=== PATIENT | male | born 1995 | race Caucasian/White ===

== ENCOUNTER 2018-10-15 10:08 | Emergency (ER) | payer SELFPAY ==
[~2018-10-15] VITALS: Ht 165.1 cm; Wt 105.7 kg
[2018-10-15] MEDS ORDERED: IBUP-1114 PO (10:11)
[2018-10-15] MEDS ORDERED: NS 1,000 ML IV ONE (10:45)
[2018-10-15] MEDS ORDERED: ONDANSETRON 4MG/2ML VIAL (J2405) IV ONE (10:45)
[2018-10-15] MEDS ORDERED: KETOROLAC 30 MG/ML VIAL (J1885) IV ONE (10:45)
[2018-10-15 11:22] LABS: BASO % 0.3 % (0.0-1.0); EOS % 0.3 % (0.0-3.0); HEMATOCRIT 45.2 % (42.0-52.0); HEMOGLOBIN 14.8 g/dl (13.5-17.5); LYMPH % 9.5 % (24.0-44.0); MEAN CORPUSCULAR HEMOGLOBIN 27.7 pg (27.0-33.0); MEAN CORPUSCULAR HGB CONC 32.7 g/dl (32.0-36.5); MEAN CORPUSCULAR VOLUME 84.6 fl (80.0-96.0); MONO # 0.4 10^3/uL (0.0-0.8); MONO % 3.6 % (0.0-5.0); NEUTROPHILS # 8.6 10^3/uL (1.8-7.7); PLATELET COUNT, AUTOMATED 327 10^3/uL (150-450); RED BLOOD COUNT 5.34 10^6/uL (4.30-6.10)
[2018-10-15 11:37] LABS: ALT/SGPT 26 U/L (12-78); BILIRUBIN,DIRECT 0.2 MG/DL (0.0-0.2); BILIRUBIN,TOTAL 0.8 MG/DL (0.2-1.0); BLOOD UREA NITROGEN 11 MG/DL (7-18); CALCIUM LEVEL 9.4 MG/DL (8.5-10.1); CARBON DIOXIDE LEVEL 25 MEQ/L (21-32); CHLORIDE LEVEL 106 MEQ/L (98-107); CREATININE FOR GFR 0.97 MG/DL (0.70-1.30); GLOMERULAR FILTRATION RATE > 60.0 (>60); GLUCOSE, FASTING 108 MG/DL (70-100); LIPASE 128 U/L (73-393); SODIUM LEVEL 136 MEQ/L (136-145); TOTAL PROTEIN 7.8 GM/DL (6.4-8.2)
--- NOTE | 2018-10-15 11:53 | REP ---
CT ABDOMEN AND PELVIS WITHOUT IV CONTRAST: CT abdomen pelvis performed without oral or IV contrast. Sagittal and coronal reconstruction images are performed. Visualized lung bases are clear. The liver, gallbladder, spleen, adrenals and pancreas are grossly unremarkable. Subcentimeter calculus is seen in the right kidney upper pole collecting system. Subcentimeter calculus is seen in the left kidney upper pole collecting system, and there is a rui-like calcification in the left lower pole collecting system. There is mild left hydroureteronephrosis caused by a 6 mm stone in the proximal left ureter at approximately the L4 level. There is no abdominal aortic aneurysm. There is no adenopathy. There is no free air or free fluid. There is no bowel wall thickening. There is no evidence of appendicitis. There is no pelvic mass. Urinary bladder is not well distended and contains no gross calculus. IMPRESSION: There is a 6 mm calculus in the proximal left ureter causing mild left hydronephrosis. There are bilateral intrarenal calculi as discussed above. Electronically Signed by Corey Wilkins MD 10/15/2018 01:34 P
[2018-10-15] MEDS ORDERED: BACT400T PO (12:53)
[2018-10-15] MEDS ORDERED: ZOFR8TAB24 PO (12:53)
[2018-10-15] MEDS ORDERED: FLUCONAZOLE 50MG TABLET PO ONE (13:00)
[2018-10-15] MEDS ORDERED: BACTRIM 160MG/800MG DS TAB PO ONE (13:00)
[2018-10-15 13:05] VITALS: BP 122/71
== END 2018-10-15 13:09 | disposition home or self-care (01) ==
LOC: M ED 10:08
DX: N10 Acute pyelonephritis (principal); N20.1 Calculus of ureter
CPT/HCPCS: 74176; 80048; 80076; 81001; 83690; 85025; 87086; 96361; 96374; 96375; 99284; J1885; J2405

== ENCOUNTER → 2021-10-07 | Outpatient (REF) ==
[~2021-10-07] MED LIST: BACT400T PO; IBUP-1114 PO; ZOFR8TAB24 PO
[2021-10-09 04:07] LABS: HERPES ZOSTER, VARICELLA IgG 1101 index (Immune >165); RUBEOLA IgG ANTIBODY >300.0 AU/mL (Immune >16.4)
== END ==
LOC: M LAB 13:02
PROVIDERS: ATTEND Nurse Practitioner Adult Health
DX: Z00.00 Encounter for general adult medical examination without abnormal findings (principal)

== ENCOUNTER → 2022-05-14 | Outpatient (REF) | LOC: M LABSMTC 10:27 | PROVIDERS: ATTEND Pediatrics | DX: Z11.52 Encounter for screening for COVID-19 (principal) ==

== ENCOUNTER → 2022-05-18 | Outpatient (REF) | LOC: M LABSMTC 09:37 | PROVIDERS: ATTEND Family Medicine | DX: Z11.52 Encounter for screening for COVID-19 (principal) ==

== ENCOUNTER → 2022-06-05 | Outpatient (REF) ==
[2022-06-05 11:02] LABS: RSV AMPLIFICATION NEGATIVE (NEGATIVE)
== END ==
LOC: M LABSMTC 09:40
PROVIDERS: ATTEND Family Medicine
DX: Z20.818 Contact with and (suspected) exposure to other bacterial communicable diseases (principal)

== ENCOUNTER → 2025-06-06 | Outpatient (REF) | LOC: M EMP 09:25 | PROVIDERS: ATTEND Family Medicine | DX: Z11.2 Encounter for screening for other bacterial diseases (principal) ==